=== PATIENT | male | born 1985 | race Caucasian/White ===

== ENCOUNTER 2023-03-10 19:37 | Inpatient (IN) | payer OTHER ==
[2023-03-10 20:41] VITALS: BMI 46.2
[2023-03-11] MEDS ORDERED: IBUPROFEN 400 MG TABLET (FP) PO PRN (01:51)
[2023-03-11] MEDS ORDERED: COLLOIDAL OATMEAL 1 BAR EACH TP PRN (01:51)
[2023-03-11] MEDS ORDERED: BENZONATATE 200 MG CAPSULE PO PRN (01:51)
[2023-03-11] MEDS ORDERED: hydrOXYzine PAMOATE 25 MG CAPSULE (FP) PO PRN (01:51)
[2023-03-11] MEDS ORDERED: BENZOCAINE/MENTHOL (CHLORASEPTIC ) LOZENGE MM PRN (01:51)
[2023-03-11] MEDS ORDERED: POLYETHYLENE GLYCOL (HEALTHYLAX) 3350 17 GM PACKET PO PRN (01:51)
[2023-03-11] MEDS ORDERED: NALOXONE HCL 0.4 MG/ML VIAL IM PRN (01:51)
[2023-03-11] MEDS ORDERED: NALOXONE HCL (KLOXXADO) 8 MG SPRAY NS PRN (01:51)
[2023-03-11] MEDS ORDERED: MAGNESIUM HYDROX 2400MG/30ML ORAL SUSPENSION 30 ML CUP PO PRN (01:51)
[2023-03-11] MEDS ORDERED: guaiFENesin 600 MG TABLET.ER (FP) PO PRN (01:51)
[2023-03-11] MEDS ORDERED: ACETAMINOPHEN 325 MG TABLET (FP) PO PRN (01:51)
[2023-03-11] MEDS ORDERED: TUBERCULIN PPD 5 TU/0.1ML VIAL ID ONE ×2 (10:49→11:52)
[2023-03-11] MEDS: PRENATAL VITAMINS W/ FOLIC ACID TABLET (FP) PO SCH (11:00)
[2023-03-11] MEDS ORDERED: TUBERCULIN PPD 5 TU/0.1ML SYRINGE (IN PATIENT USE ONLY) ID ONE (12:00)
[2023-03-11] MEDS: ESCITALOPRAM OXALATE 10 MG TABLET PO SCH (12:24)
[2023-03-11] MEDS: LOPERAMIDE HCL 2 MG CAPSULE PO PRN (17:25)
[2023-03-11] MEDS: MELATONIN 5 MG TABLETS PO SCH (21:23)
[2023-03-11] MEDS: busPIRone HCL 5 MG TABLET PO SCH (21:24)
[2023-03-11] MEDS: THIAMINE HCL 100 MG TABLET (FP) PO SCH (21:24)
[2023-03-11] MEDS: QUEtiapine FUMARATE 50 MG TABLET PO SCH (21:24)
[2023-03-11] MEDS ORDERED: QUEtiapine FUMARATE 50 MG TABLET PO SCH (22:00)
[2023-03-12] MEDS: PRENATAL VITAMINS W/ FOLIC ACID TABLET (FP) PO SCH (11:24)
[2023-03-12] MEDS: busPIRone HCL 5 MG TABLET PO SCH ×2 (11:25→21:55)
[2023-03-12] MEDS: ESCITALOPRAM OXALATE 10 MG TABLET PO SCH (11:25)
[2023-03-12 11:38] LABS: HEMATOCRIT 42.8 % (35.4-49); HEMOGLOBIN 14.2 GM/dL (11.7-16.9); MCH 27.6 pg (25.7-33.7); MCHC 33.2 g/dl (32.0-35.9); MEAN CELL VOLUME 83.3 fl (80-96); MEAN PLT VOLUME 8.5 fl (7.5-11.1); PLATELET COUNT 283 10^3/uL (134-434); RBC 5.14 M/mm3 (4.00-5.60); RDW 14.5 % (11.9-15.9); WHITE BLOOD COUNT 6.2 K/mm3 (4.0-10.0)
[2023-03-12 11:39] LABS: POTASSIUM 3.6 mmol/L (3.5-5.1)
[2023-03-12 11:45] LABS: ALBUMIN 3.4 g/dl (3.4-5.0)
[2023-03-12 11:48] LABS: BILIRUBIN,TOTAL 0.9 mg/dL (0.2-1); TOT PROT 6.7 g/dl (6.4-8.2)
[2023-03-12 11:49] LABS: CREATININE 1.2 mg/dL (0.55-1.3)
[2023-03-12] MEDS: LOPERAMIDE HCL 2 MG CAPSULE PO PRN (18:15)
[2023-03-12] MEDS: THIAMINE HCL 100 MG TABLET (FP) PO SCH (21:55)
[2023-03-12] MEDS: QUEtiapine FUMARATE 50 MG TABLET PO SCH (21:55)
[2023-03-12] MEDS: MELATONIN 5 MG TABLETS PO SCH (21:55)
[2023-03-13] MEDS: busPIRone HCL 5 MG TABLET PO SCH ×2 (09:44→21:31)
[2023-03-13] MEDS: PRENATAL VITAMINS W/ FOLIC ACID TABLET (FP) PO SCH (09:45)
[2023-03-13] MEDS: ESCITALOPRAM OXALATE 10 MG TABLET PO SCH (09:45)
[2023-03-13] MEDS: LOPERAMIDE HCL 2 MG CAPSULE PO PRN (19:40)
[2023-03-13] MEDS: THIAMINE HCL 100 MG TABLET (FP) PO SCH (21:31)
[2023-03-13] MEDS: QUEtiapine FUMARATE 50 MG TABLET PO SCH (21:31)
[2023-03-13] MEDS: MELATONIN 5 MG TABLETS PO SCH (21:31)
[2023-03-14] MEDS: ESCITALOPRAM OXALATE 10 MG TABLET PO SCH (09:50)
[2023-03-14] MEDS: busPIRone HCL 5 MG TABLET PO SCH ×2 (09:51→21:16)
[2023-03-14] MEDS: PRENATAL VITAMINS W/ FOLIC ACID TABLET (FP) PO SCH (09:51)
[2023-03-14 14:58] LABS: PH,URINE 6.5 (5.0-8.0); URINE APPEARANCE CLEAR; URINE BILIRUBIN NEGATIVE (NEGATIVE); URINE COLOR YELLOW; URINE GLUCOSE (UA) NEGATIVE (NEGATIVE); URINE KETONE TRACE (NEGATIVE); URINE LEUK ESTERASE NEGATIVE (NEGATIVE); URINE NITRITE NEGATIVE (NEGATIVE); URINE PROTEIN NEGATIVE (NEGATIVE)
[2023-03-14] MEDS: QUEtiapine FUMARATE 50 MG TABLET PO SCH (21:16)
[2023-03-14] MEDS: MELATONIN 5 MG TABLETS PO SCH (21:16)
[2023-03-14] MEDS: THIAMINE HCL 100 MG TABLET (FP) PO SCH (21:16)
[2023-03-15] MEDS: busPIRone HCL 5 MG TABLET PO SCH ×2 (10:05→21:16)
[2023-03-15] MEDS: ESCITALOPRAM OXALATE 10 MG TABLET PO SCH (10:05)
[2023-03-15] MEDS: PRENATAL VITAMINS W/ FOLIC ACID TABLET (FP) PO SCH (10:05)
[2023-03-15] MEDS: MELATONIN 5 MG TABLETS PO SCH (21:16)
[2023-03-15] MEDS: THIAMINE HCL 100 MG TABLET (FP) PO SCH (21:16)
[2023-03-15] MEDS: QUEtiapine FUMARATE 50 MG TABLET PO SCH (21:16)
[2023-03-16] MEDS: ESCITALOPRAM OXALATE 10 MG TABLET PO SCH (10:02)
[2023-03-16] MEDS: PRENATAL VITAMINS W/ FOLIC ACID TABLET (FP) PO SCH (10:02)
[2023-03-16] MEDS: busPIRone HCL 5 MG TABLET PO SCH ×2 (10:02→21:16)
[2023-03-16] MEDS: MELATONIN 5 MG TABLETS PO SCH (21:16)
[2023-03-16] MEDS: QUEtiapine FUMARATE 50 MG TABLET PO SCH (21:16)
[2023-03-16] MEDS: THIAMINE HCL 100 MG TABLET (FP) PO SCH (21:16)
[2023-03-17] MEDS: busPIRone HCL 5 MG TABLET PO SCH ×2 (09:32→21:18)
[2023-03-17] MEDS: ESCITALOPRAM OXALATE 10 MG TABLET PO SCH (09:32)
[2023-03-17] MEDS: PRENATAL VITAMINS W/ FOLIC ACID TABLET (FP) PO SCH (09:32)
[2023-03-17] MEDS: MELATONIN 5 MG TABLETS PO SCH (21:18)
[2023-03-17] MEDS: QUEtiapine FUMARATE 50 MG TABLET PO SCH (21:18)
[2023-03-17] MEDS: THIAMINE HCL 100 MG TABLET (FP) PO SCH (21:18)
[2023-03-18] MEDS: ESCITALOPRAM OXALATE 10 MG TABLET PO SCH (09:52)
[2023-03-18] MEDS: PRENATAL VITAMINS W/ FOLIC ACID TABLET (FP) PO SCH (09:52)
[2023-03-18] MEDS: busPIRone HCL 5 MG TABLET PO SCH ×2 (09:52→21:22)
[2023-03-18] MEDS: THIAMINE HCL 100 MG TABLET (FP) PO SCH (21:22)
[2023-03-18] MEDS: QUEtiapine FUMARATE 50 MG TABLET PO SCH (21:22)
[2023-03-18] MEDS: MELATONIN 5 MG TABLETS PO SCH (21:22)
[2023-03-19] MEDS: ESCITALOPRAM OXALATE 10 MG TABLET PO SCH (09:37)
[2023-03-19] MEDS: busPIRone HCL 5 MG TABLET PO SCH ×2 (09:37→21:31)
[2023-03-19] MEDS: PRENATAL VITAMINS W/ FOLIC ACID TABLET (FP) PO SCH (09:37)
[2023-03-19] MEDS ORDERED: AMMONIUM LACTATE 12% LOTION 225 GM BOTTLE TP PRN (10:28)
[2023-03-19] MEDS: MELATONIN 5 MG TABLETS PO SCH (21:30)
[2023-03-19] MEDS: QUEtiapine FUMARATE 50 MG TABLET PO SCH (21:30)
[2023-03-19] MEDS: THIAMINE HCL 100 MG TABLET (FP) PO SCH (21:31)
[2023-03-20] MEDS: PRENATAL VITAMINS W/ FOLIC ACID TABLET (FP) PO SCH (09:51)
[2023-03-20] MEDS: ESCITALOPRAM OXALATE 10 MG TABLET PO SCH (09:51)
[2023-03-20] MEDS: busPIRone HCL 5 MG TABLET PO SCH ×2 (09:51→21:14)
[2023-03-20] MEDS: QUEtiapine FUMARATE 50 MG TABLET PO SCH (21:13)
[2023-03-20] MEDS: THIAMINE HCL 100 MG TABLET (FP) PO SCH (21:14)
[2023-03-20] MEDS: MELATONIN 5 MG TABLETS PO SCH (21:14)
[2023-03-21] MEDS: busPIRone HCL 5 MG TABLET PO SCH ×2 (09:47→21:18)
[2023-03-21] MEDS: ESCITALOPRAM OXALATE 10 MG TABLET PO SCH (09:47)
[2023-03-21] MEDS: PRENATAL VITAMINS W/ FOLIC ACID TABLET (FP) PO SCH (09:48)
[2023-03-21] MEDS: QUEtiapine FUMARATE 50 MG TABLET PO SCH (21:18)
[2023-03-21] MEDS: THIAMINE HCL 100 MG TABLET (FP) PO SCH (21:18)
[2023-03-21] MEDS: MELATONIN 5 MG TABLETS PO SCH (21:18)
[2023-03-22] MEDS: busPIRone HCL 5 MG TABLET PO SCH ×2 (09:58→21:41)
[2023-03-22] MEDS: PRENATAL VITAMINS W/ FOLIC ACID TABLET (FP) PO SCH (09:58)
[2023-03-22] MEDS: ESCITALOPRAM OXALATE 10 MG TABLET PO SCH (09:59)
[2023-03-22] MEDS: THIAMINE HCL 100 MG TABLET (FP) PO SCH (21:41)
[2023-03-22] MEDS: QUEtiapine FUMARATE 50 MG TABLET PO SCH (21:41)
[2023-03-22] MEDS: MELATONIN 5 MG TABLETS PO SCH (21:41)
[2023-03-23] MEDS: busPIRone HCL 5 MG TABLET PO SCH ×2 (10:03→21:22)
[2023-03-23] MEDS: ESCITALOPRAM OXALATE 10 MG TABLET PO SCH (10:03)
[2023-03-23] MEDS: PRENATAL VITAMINS W/ FOLIC ACID TABLET (FP) PO SCH (10:03)
[2023-03-23] MEDS: QUEtiapine FUMARATE 50 MG TABLET PO SCH (21:22)
[2023-03-23] MEDS: MELATONIN 5 MG TABLETS PO SCH (21:22)
[2023-03-23] MEDS: THIAMINE HCL 100 MG TABLET (FP) PO SCH (21:23)
[2023-03-24] MEDS: busPIRone HCL 5 MG TABLET PO SCH ×2 (09:30→21:33)
[2023-03-24] MEDS: ESCITALOPRAM OXALATE 10 MG TABLET PO SCH (09:30)
[2023-03-24] MEDS: PRENATAL VITAMINS W/ FOLIC ACID TABLET (FP) PO SCH (09:30)
[2023-03-24] MEDS: QUEtiapine FUMARATE 50 MG TABLET PO SCH (21:33)
[2023-03-24] MEDS: MELATONIN 5 MG TABLETS PO SCH (21:33)
[2023-03-24] MEDS: THIAMINE HCL 100 MG TABLET (FP) PO SCH (21:33)
[2023-03-25] MEDS: ESCITALOPRAM OXALATE 10 MG TABLET PO SCH (09:57)
[2023-03-25] MEDS: busPIRone HCL 5 MG TABLET PO SCH ×2 (09:57→21:23)
[2023-03-25] MEDS: PRENATAL VITAMINS W/ FOLIC ACID TABLET (FP) PO SCH (09:57)
[2023-03-25] MEDS: MELATONIN 5 MG TABLETS PO SCH (21:23)
[2023-03-25] MEDS: QUEtiapine FUMARATE 50 MG TABLET PO SCH (21:23)
[2023-03-25] MEDS: THIAMINE HCL 100 MG TABLET (FP) PO SCH (21:23)
[2023-03-26] MEDS: busPIRone HCL 5 MG TABLET PO SCH ×2 (09:58→21:32)
[2023-03-26] MEDS: PRENATAL VITAMINS W/ FOLIC ACID TABLET (FP) PO SCH (09:58)
[2023-03-26] MEDS: ESCITALOPRAM OXALATE 10 MG TABLET PO SCH (09:58)
[2023-03-26] MEDS: MELATONIN 5 MG TABLETS PO SCH (21:32)
[2023-03-26] MEDS: QUEtiapine FUMARATE 50 MG TABLET PO SCH (21:32)
[2023-03-26] MEDS: THIAMINE HCL 100 MG TABLET (FP) PO SCH (21:32)
[2023-03-27] MEDS: PRENATAL VITAMINS W/ FOLIC ACID TABLET (FP) PO SCH (09:57)
[2023-03-27] MEDS: busPIRone HCL 5 MG TABLET PO SCH ×2 (09:57→21:07)
[2023-03-27] MEDS: ESCITALOPRAM OXALATE 10 MG TABLET PO SCH (09:58)
[2023-03-27] MEDS: QUEtiapine FUMARATE 50 MG TABLET PO SCH (21:07)
[2023-03-27] MEDS: MELATONIN 5 MG TABLETS PO SCH (21:07)
[2023-03-27] MEDS: THIAMINE HCL 100 MG TABLET (FP) PO SCH (21:07)
[2023-03-28] MEDS: busPIRone HCL 5 MG TABLET PO SCH ×2 (10:15→21:08)
[2023-03-28] MEDS: PRENATAL VITAMINS W/ FOLIC ACID TABLET (FP) PO SCH (10:15)
[2023-03-28] MEDS: ESCITALOPRAM OXALATE 10 MG TABLET PO SCH (10:16)
[2023-03-28] MEDS: MELATONIN 5 MG TABLETS PO SCH (21:07)
[2023-03-28] MEDS: THIAMINE HCL 100 MG TABLET (FP) PO SCH (21:07)
[2023-03-28] MEDS: QUEtiapine FUMARATE 50 MG TABLET PO SCH (21:07)
[2023-03-29] MEDS: PRENATAL VITAMINS W/ FOLIC ACID TABLET (FP) PO SCH (10:20)
[2023-03-29] MEDS: busPIRone HCL 5 MG TABLET PO SCH ×2 (10:21→21:14)
[2023-03-29] MEDS: ESCITALOPRAM OXALATE 10 MG TABLET PO SCH (10:21)
[2023-03-29] MEDS: MELATONIN 5 MG TABLETS PO SCH (21:13)
[2023-03-29] MEDS: THIAMINE HCL 100 MG TABLET (FP) PO SCH (21:13)
[2023-03-29] MEDS: QUEtiapine FUMARATE 50 MG TABLET PO SCH (21:14)
[2023-03-30] MEDS: PRENATAL VITAMINS W/ FOLIC ACID TABLET (FP) PO SCH (09:59)
[2023-03-30] MEDS: busPIRone HCL 5 MG TABLET PO SCH ×2 (09:59→21:10)
[2023-03-30] MEDS: ESCITALOPRAM OXALATE 10 MG TABLET PO SCH (09:59)
[2023-03-30] MEDS: THIAMINE HCL 100 MG TABLET (FP) PO SCH (21:10)
[2023-03-30] MEDS: QUEtiapine FUMARATE 50 MG TABLET PO SCH (21:10)
[2023-03-30] MEDS: MELATONIN 5 MG TABLETS PO SCH (21:11)
[2023-03-30] MEDS: IBUPROFEN 600 MG TABLET (FP) PO PRN (21:11)
[2023-03-31] MEDS: MAG HYDROX/AL HYDROX/SIMETH 30 ML UNIT-DOSE CUP PO PRN (08:52)
[2023-03-31] MEDS: PRENATAL VITAMINS W/ FOLIC ACID TABLET (FP) PO SCH (09:02)
[2023-03-31] MEDS: ESCITALOPRAM OXALATE 10 MG TABLET PO SCH (09:03)
[2023-03-31] MEDS: busPIRone HCL 5 MG TABLET PO SCH ×2 (09:03→21:09)
[2023-03-31] MEDS: QUEtiapine FUMARATE 50 MG TABLET PO SCH (21:09)
[2023-03-31] MEDS: MELATONIN 5 MG TABLETS PO SCH (21:09)
[2023-03-31] MEDS: THIAMINE HCL 100 MG TABLET (FP) PO SCH (21:09)
[2023-04-01] MEDS: ESCITALOPRAM OXALATE 10 MG TABLET PO SCH (09:13)
[2023-04-01] MEDS: busPIRone HCL 5 MG TABLET PO SCH ×2 (09:13→21:28)
[2023-04-01] MEDS: PRENATAL VITAMINS W/ FOLIC ACID TABLET (FP) PO SCH (09:14)
[2023-04-01] MEDS: MELATONIN 5 MG TABLETS PO SCH (21:28)
[2023-04-01] MEDS: THIAMINE HCL 100 MG TABLET (FP) PO SCH (21:28)
[2023-04-01] MEDS: QUEtiapine FUMARATE 50 MG TABLET PO SCH (21:28)
[2023-04-02] MEDS: PRENATAL VITAMINS W/ FOLIC ACID TABLET (FP) PO SCH (09:42)
[2023-04-02] MEDS: ESCITALOPRAM OXALATE 10 MG TABLET PO SCH (09:42)
[2023-04-02] MEDS: busPIRone HCL 5 MG TABLET PO SCH ×2 (09:42→21:04)
[2023-04-02] MEDS: IBUPROFEN 600 MG TABLET (FP) PO PRN (17:34)
[2023-04-02] MEDS: THIAMINE HCL 100 MG TABLET (FP) PO SCH (21:04)
[2023-04-02] MEDS: QUEtiapine FUMARATE 50 MG TABLET PO SCH (21:04)
[2023-04-02] MEDS: MELATONIN 5 MG TABLETS PO SCH (21:04)
[2023-04-03] MEDS: MAG HYDROX/AL HYDROX/SIMETH 30 ML UNIT-DOSE CUP PO PRN ×2 (02:44→07:45)
[2023-04-03] MEDS ORDERED: ONDANSETRON *ODT* 4 MG TABLET SL PRN (08:16)
[2023-04-03 08:57] VITALS: RESP 18; TEMP 98.1
[2023-04-03] MEDS: ESCITALOPRAM OXALATE 10 MG TABLET PO SCH (09:42)
[2023-04-03] MEDS: PRENATAL VITAMINS W/ FOLIC ACID TABLET (FP) PO SCH (09:42)
[2023-04-03] MEDS: busPIRone HCL 5 MG TABLET PO SCH ×2 (09:42→21:09)
[2023-04-03] MEDS: QUEtiapine FUMARATE 50 MG TABLET PO SCH (21:09)
[2023-04-03] MEDS: THIAMINE HCL 100 MG TABLET (FP) PO SCH (21:09)
[2023-04-03] MEDS: MELATONIN 5 MG TABLETS PO SCH (21:10)
[2023-04-04] MEDS: ESCITALOPRAM OXALATE 10 MG TABLET PO SCH (09:46)
[2023-04-04] MEDS: busPIRone HCL 5 MG TABLET PO SCH ×2 (09:46→21:20)
[2023-04-04] MEDS: PRENATAL VITAMINS W/ FOLIC ACID TABLET (FP) PO SCH (09:47)
[2023-04-04] MEDS: MELATONIN 5 MG TABLETS PO SCH (21:19)
[2023-04-04] MEDS: THIAMINE HCL 100 MG TABLET (FP) PO SCH (21:19)
[2023-04-04] MEDS: QUEtiapine FUMARATE 50 MG TABLET PO SCH (21:20)
[2023-04-05] MEDS: ESCITALOPRAM OXALATE 10 MG TABLET PO SCH (09:07)
[2023-04-05] MEDS: PRENATAL VITAMINS W/ FOLIC ACID TABLET (FP) PO SCH (09:07)
[2023-04-05] MEDS: busPIRone HCL 5 MG TABLET PO SCH (09:07)
[2023-04-05 09:12] VITALS: BP 136/79; PULSE 93
== END 2023-04-05 09:12 | disposition home or self-care (01) | DRG 772 ==
LOC: YASAS 19:37 → Y3E 03-11 02:09
PROVIDERS: ADMIT Allergy & Immunology; ATTEND Psychiatry & Neurology Pain Medicine
PROC: HZ42ZZZ Group Counseling for Substance Abuse Treatment, Cognitive-Behavioral (ICD-10-PCS; principal; 2023-03-11)
DX: F14.20 Cocaine dependence, uncomplicated (principal); F12.20 Cannabis dependence, uncomplicated; F19.982 Other psychoactive substance use, unspecified with psychoactive substance-induced sleep disorder; F19.94 Other psychoactive substance use, unspecified with psychoactive substance-induced mood disorder; F41.9 Anxiety disorder, unspecified; F31.9 Bipolar disorder, unspecified; F43.12 Post-traumatic stress disorder, chronic; E78.5 Hyperlipidemia, unspecified; E66.01 Morbid (severe) obesity due to excess calories; Z68.42 Body mass index [BMI] 45.0-49.9, adult; Z87.891 Personal history of nicotine dependence; Z88.0 Allergy status to penicillin; Z62.810 Personal history of physical and sexual abuse in childhood; Z56.0 Unemployment, unspecified; Z59.00 Homelessness unspecified
CPT/HCPCS: 36415; 80053; 80307; 81003; 83036; 85027; 86780; 87635; 87811; 93005; 93010

== ENCOUNTER 2023-04-30 11:52 | Inpatient (IN) | payer OTHER ==
[2023-04-30 12:38] VITALS: BMI 48.1
[2023-04-30] MEDS ORDERED: BENZONATATE 200 MG CAPSULE PO PRN (14:19)
[2023-04-30] MEDS ORDERED: BENZOCAINE/MENTHOL (CHLORASEPTIC ) LOZENGE MM PRN (14:19)
[2023-04-30] MEDS ORDERED: IBUPROFEN 400 MG TABLET (FP) PO PRN (14:19)
[2023-04-30] MEDS ORDERED: POLYETHYLENE GLYCOL (HEALTHYLAX) 3350 17 GM PACKET PO PRN (14:19)
[2023-04-30] MEDS ORDERED: ACETAMINOPHEN 325 MG TABLET (FP) PO PRN (14:19)
[2023-04-30] MEDS ORDERED: MAG HYDROX/AL HYDROX/SIMETH 30 ML UNIT-DOSE CUP PO PRN (14:19)
[2023-04-30] MEDS ORDERED: NALOXONE HCL 0.4 MG/ML VIAL IM PRN (14:19)
[2023-04-30] MEDS ORDERED: IBUPROFEN 600 MG TABLET (FP) PO PRN (14:19)
[2023-04-30] MEDS ORDERED: LOPERAMIDE HCL 2 MG CAPSULE PO PRN (14:19)
[2023-04-30] MEDS ORDERED: guaiFENesin 600 MG TABLET.ER (FP) PO PRN (14:19)
[2023-04-30] MEDS ORDERED: NALOXONE HCL (KLOXXADO) 8 MG SPRAY NS PRN (14:19)
[2023-04-30] MEDS ORDERED: MAGNESIUM HYDROX 2400MG/30ML ORAL SUSPENSION 30 ML CUP PO PRN (14:19)
[2023-04-30] MEDS ORDERED: PRENATAL VITAMINS W/ FOLIC ACID TABLET (FP) PO ONE (15:03)
[2023-04-30] MEDS: PRENATAL VITAMINS W/ FOLIC ACID TABLET (FP) PO SCH (15:06)
[2023-04-30] MEDS: MELATONIN 5 MG TABLETS PO SCH (21:52)
[2023-04-30] MEDS: THIAMINE HCL 100 MG TABLET (FP) PO SCH (21:52)
[2023-04-30] MEDS: hydrOXYzine PAMOATE 25 MG CAPSULE (FP) PO PRN (21:52)
[2023-05-01 11:50] LABS: HEMATOCRIT 39.6 % (35.4-49); HEMOGLOBIN 12.9 GM/dL (11.7-16.9); MCH 27.7 pg (25.7-33.7); MCHC 32.7 g/dl (32.0-35.9); MEAN CELL VOLUME 84.7 fl (80-96); MEAN PLT VOLUME 8.6 fl (7.5-11.1); PLATELET COUNT 274 10^3/uL (134-434); RBC 4.68 M/mm3 (4.00-5.60); RDW 14.9 % (11.9-15.9); WHITE BLOOD COUNT 7.7 K/mm3 (4.0-10.0)
[2023-05-01 12:17] LABS: CHLORIDE 107 mmol/L (98-107); SODIUM 141 mmol/L (136-145)
[2023-05-01 12:19] LABS: CALCIUM 8.4 mg/dL (8.5-10.1); SYPHILIS W/ RPR CONF NON-REACTIVE (NONREACTIVE)
[2023-05-01 12:20] LABS: ALBUMIN 3.2 g/dl (3.4-5.0); ANION GAP 5 mmol/L (4-13); BLOOD UREA NITROGEN 15.1 mg/dL (7-18); CO2 28 mmol/L (21-32); GLUCOSE,RANDOM 97 mg/dL (74-106)
[2023-05-01 12:22] LABS: SGPT/ALT 25 U/L (13-61)
[2023-05-01 12:24] LABS: BILIRUBIN,TOTAL 0.6 mg/dL (0.2-1); CREATININE 0.9 mg/dL (0.55-1.3); SGOT/AST 18 U/L (15-37); TOT PROT 6.4 g/dl (6.4-8.2)
[2023-05-01 12:27] LABS: ALK PHOS 68 U/L (45-117)
[2023-05-01] MEDS: BACITRACIN 0.9 GM PACKET TP SCH (13:11)
[2023-05-01 21:12] LABS: EPI CELLS 1 /uL (0-25.1); HYALINE CASTS 0 /uL (0-3.1); URINE APPEARANCE CLEAR; URINE BACTERIA 3 /uL (0-1359); URINE BILIRUBIN NEGATIVE (NEGATIVE); URINE COLOR YELLOW; URINE GLUCOSE (UA) NEGATIVE (NEGATIVE); URINE KETONE NEGATIVE (NEGATIVE); URINE LEUK ESTERASE NEGATIVE (NEGATIVE); URINE NITRITE NEGATIVE (NEGATIVE); URINE PROTEIN NEGATIVE (NEGATIVE); URINE RBC 11 /uL (0-23.9); URINE WBC 1 /uL (0-25.8)
[2023-05-01] MEDS: busPIRone HCL 5 MG TABLET PO SCH (21:54)
[2023-05-01] MEDS: QUEtiapine FUMARATE 50 MG TABLET PO SCH (21:55)
[2023-05-02 09:22] VITALS: BP 131/68; PULSE 75; RESP 20; TEMP 97.7
[2023-05-02] MEDS: ESCITALOPRAM OXALATE 10 MG TABLET PO SCH (10:46)
== END 2023-05-02 12:04 | disposition home or self-care (01) | DRG 774 ==
LOC: YASAS 11:52 → Y3N 18:43
PROVIDERS: ADMIT Allergy & Immunology; ATTEND Surgery
PROC: HZ2ZZZZ Detoxification Services for Substance Abuse Treatment (ICD-10-PCS; principal; 2023-04-30)
DX: F14.20 Cocaine dependence, uncomplicated (principal); F12.20 Cannabis dependence, uncomplicated; F31.9 Bipolar disorder, unspecified; F19.24 Other psychoactive substance dependence with psychoactive substance-induced mood disorder; F43.10 Post-traumatic stress disorder, unspecified; U07.1 COVID-19; E78.5 Hyperlipidemia, unspecified; E66.01 Morbid (severe) obesity due to excess calories; Z68.42 Body mass index [BMI] 45.0-49.9, adult; Z62.810 Personal history of physical and sexual abuse in childhood; Z56.0 Unemployment, unspecified; Z59.00 Homelessness unspecified; Z88.0 Allergy status to penicillin
CPT/HCPCS: 36415; 80053; 80307; 81003; 85027; 86780; 86803; 87635; 87811

== ENCOUNTER 2024-02-25 10:38 | Inpatient (IN) | payer OTHER ==
[2024-02-25 11:20] VITALS: BMI 48.1
[2024-02-25] MEDS ORDERED: ONDANSETRON *ODT* 4 MG TABLET SL PRN (12:02)
[2024-02-25] MEDS ORDERED: MAGNESIUM HYDROX 2400MG/30ML ORAL SUSPENSION 30 ML CUP PO PRN (12:02)
[2024-02-25] MEDS ORDERED: BENZOCAINE/MENTHOL (CHLORASEPTIC ) LOZENGE MM PRN (12:02)
[2024-02-25] MEDS ORDERED: DICYCLOMINE HCL 10 MG CAPSULE PO PRN (12:02)
[2024-02-25] MEDS ORDERED: BISMUTH SUBSALICYLATE 262 MG/15 ML BTL PO PRN (12:02)
[2024-02-25] MEDS ORDERED: IBUPROFEN 600 MG TABLET (FP) PO PRN (12:02)
[2024-02-25] MEDS ORDERED: MAG HYDROX/AL HYDROX/SIMETH 30 ML UNIT-DOSE CUP PO PRN (12:02)
[2024-02-25] MEDS ORDERED: LOPERAMIDE HCL 2 MG CAPSULE PO PRN (12:02)
[2024-02-25] MEDS ORDERED: guaiFENesin 600 MG TABLET.ER (FP) PO PRN (12:02)
[2024-02-25] MEDS ORDERED: NALOXONE (NARCAN) HCL 4 MG/0.1 ML SPRAY NS PRN (12:02)
[2024-02-25] MEDS ORDERED: POLYETHYLENE GLYCOL (HEALTHYLAX) 3350 17 GM PACKET PO PRN (12:02)
[2024-02-25] MEDS ORDERED: ACETAMINOPHEN 325 MG TABLET (FP) PO PRN (12:02)
[2024-02-25] MEDS ORDERED: IBUPROFEN 400 MG TABLET (FP) PO PRN (12:02)
[2024-02-25] MEDS ORDERED: BENZONATATE 200 MG CAPSULE PO PRN (12:02)
[2024-02-25] MEDS: ASPIRIN 81 MG CHEWABLE TABLETS PO SCH (12:39)
[2024-02-25] MEDS: hydrOXYzine PAMOATE 25 MG CAPSULE (FP) PO PRN (12:39)
[2024-02-25] MEDS: ATORVASTATIN CA 20 MG TABLET (FP) PO SCH (12:39)
[2024-02-25] MEDS: QUEtiapine FUMARATE 100 MG TABLET (FP) PO SCH (22:25)
[2024-02-25] MEDS: THIAMINE 100 MG TABLET PO SCH (22:25)
[2024-02-25] MEDS: MELATONIN 5 MG TABLETS PO SCH (22:25)
[2024-02-25] MEDS: MIRTAZAPINE 30 MG TABLET PO SCH (22:25)
[2024-02-26] MEDS: PRENATAL VITAMINS W/ FOLIC ACID TABLET (FP) PO SCH (09:15)
[2024-02-26] MEDS: METHOCARBAMOL 500 MG TABLET PO PRN (09:15)
[2024-02-26] MEDS ORDERED: ALBUTEROL SO4 HFA INHALER IH PRN (09:16)
[2024-02-26 11:24] LABS: POTASSIUM 3.9 mmol/L (3.5-5.1)
[2024-02-26 11:31] LABS: CALCIUM 9.4 mg/dL (8.5-10.1)
[2024-02-26 11:32] LABS: ALBUMIN 3.6 g/dl (3.4-5.0)
[2024-02-26 11:34] LABS: HEMATOCRIT 41.7 % (35.4-49); HEMOGLOBIN 13.6 GM/dL (11.7-16.9); MCH 27.2 pg (25.7-33.7); MCHC 32.6 g/dl (32.0-35.9); MEAN CELL VOLUME 83.7 fl (80-96); MEAN PLT VOLUME 8.3 fl (7.5-11.1); PLATELET COUNT 264 10^3/uL (134-434); RBC 4.98 M/mm3 (4.00-5.60); RDW 14.9 % (11.9-15.9); WHITE BLOOD COUNT 6.2 K/mm3 (4.0-10.0)
[2024-02-26 11:35] LABS: CREATININE 1.1 mg/dL (0.55-1.3)
[2024-02-26 11:37] LABS: BILIRUBIN,TOTAL 0.5 mg/dL (0.2-1); TOT PROT 7.3 g/dl (6.4-8.2)
[2024-02-26 21:42] VITALS: RESP 18
[2024-02-27] MEDS: NALOXONE (NYS OPIOID OVERDOSE PROGRAM) 4 MG/0.1 ML SPRAY NS SCH (10:24)
[2024-02-27 12:35] VITALS: BP 119/73; PULSE 77; TEMP 97.6
== END 2024-02-27 13:50 | disposition other institution (70) | DRG 774 ==
LOC: YASAS 10:38 → Y6N 12:07
PROVIDERS: ADMIT Allergy & Immunology; ATTEND Surgery
PROC: HZ2ZZZZ Detoxification Services for Substance Abuse Treatment (ICD-10-PCS; principal; 2024-02-25)
DX: F10.230 Alcohol dependence with withdrawal, uncomplicated (principal); F14.20 Cocaine dependence, uncomplicated; F12.20 Cannabis dependence, uncomplicated; F31.9 Bipolar disorder, unspecified; F43.10 Post-traumatic stress disorder, unspecified; E78.5 Hyperlipidemia, unspecified; I25.10 Atherosclerotic heart disease of native coronary artery without angina pectoris; J45.909 Unspecified asthma, uncomplicated; N52.9 Male erectile dysfunction, unspecified; Z87.891 Personal history of nicotine dependence; Z62.810 Personal history of physical and sexual abuse in childhood; Z88.0 Allergy status to penicillin
CPT/HCPCS: 36415; 80053; 80305; 80307; 85027; 86780; 87811; 93005; 93010

== ENCOUNTER 2024-02-27 13:58 | Inpatient (IN) | payer OTHER ==
[2024-02-27] MEDS ORDERED: NALOXONE HCL 0.4 MG/ML VIAL IVPUSH PRN (15:02)
[2024-02-27] MEDS ORDERED: NALOXONE (NARCAN) HCL 4 MG/0.1 ML SPRAY NS PRN (15:02)
[2024-02-27] MEDS ORDERED: IBUPROFEN 400 MG TABLET (FP) PO PRN (15:02)
[2024-02-27] MEDS ORDERED: MAGNESIUM HYDROX 2400MG/30ML ORAL SUSPENSION 30 ML CUP PO PRN (15:02)
[2024-02-27] MEDS ORDERED: BENZONATATE 200 MG CAPSULE PO PRN (15:02)
[2024-02-27] MEDS ORDERED: POLYETHYLENE GLYCOL (HEALTHYLAX) 3350 17 GM PACKET PO PRN (15:02)
[2024-02-27] MEDS ORDERED: MAG HYDROX/AL HYDROX/SIMETH 30 ML UNIT-DOSE CUP PO PRN (15:02)
[2024-02-27] MEDS ORDERED: NICOTINE POLACRILEX 4 MG LOZENGE BC PRN (15:02)
[2024-02-27] MEDS ORDERED: ACETAMINOPHEN 325 MG TABLET (FP) PO PRN (15:02)
[2024-02-27] MEDS ORDERED: LOPERAMIDE HCL 2 MG CAPSULE PO PRN (15:02)
[2024-02-27] MEDS ORDERED: NICOTINE POLACRILEX 4 MG GUM BUC PRN (15:02)
[2024-02-27] MEDS: MIRTAZAPINE 30 MG TABLET PO SCH (21:27)
[2024-02-27] MEDS: QUEtiapine FUMARATE 100 MG TABLET (FP) PO SCH (21:27)
[2024-02-27] MEDS: THIAMINE 100 MG TABLET PO SCH (21:27)
[2024-02-27] MEDS: MELATONIN 5 MG TABLETS PO SCH (21:27)
[2024-02-28] MEDS: IBUPROFEN 600 MG TABLET (FP) PO PRN (10:01)
[2024-02-28] MEDS: PRENATAL VITAMINS W/ FOLIC ACID TABLET (FP) PO SCH (10:01)
[2024-02-28] MEDS: ASPIRIN 81 MG CHEWABLE TABLETS PO SCH (10:01)
[2024-02-28] MEDS: PNEUMOC 20-VAL CONJ-DIP CRM/PF 0.5 ML SYRINGE IM ONE (13:10)
[2024-02-28] MEDS: ATORVASTATIN CA 20 MG TABLET (FP) PO SCH (21:08)
[2024-02-29 00:22] LABS: HIV INTERPRETATION NEGATIVE (NEGATIVE)
[2024-02-29] MEDS: METHOCARBAMOL 500 MG TABLET PO PRN (10:26)
[2024-02-29] MEDS: hydrOXYzine PAMOATE 25 MG CAPSULE (FP) PO PRN (10:26)
[2024-02-29] MEDS: guaiFENesin 600 MG TABLET.ER (FP) PO PRN (21:30)
[2024-03-01] MEDS: ALBUTEROL SO4 HFA INHALER IH PRN (00:11)
[2024-03-01] MEDS: BENZOCAINE/MENTHOL (CHLORASEPTIC ) LOZENGE MM PRN (06:16)
[2024-03-03] MEDS: guaiFENesin 600 MG TABLET.ER (FP) PO PRN (10:31)
[2024-03-06] MEDS ORDERED: BENZONATATE 200 MG CAPSULE PO PRN (12:39)
[2024-03-06] MEDS: guaiFENesin 600 MG TABLET.ER (FP) PO SCH (13:57)
[2024-03-07] MEDS: CHOLECALCIFEROL (VIT D3) 1,000 UNIT (25 MCG) TABLET PO SCH (09:48)
[2024-03-11] MEDS: BACLOFEN 10 MG TABLET (FP) PO SCH (21:15)
[2024-03-18 06:45] VITALS: RESP 17; TEMP 97.3
[2024-03-19] MEDS ORDERED: QUEtiapine FUMARATE 50 MG TABLET ONE (21:20)
[2024-03-21] MEDS ORDERED: CHOLECALCIFEROL (VIT D3) 1,000 UNIT (25 MCG) TABLET PO SCH (13:31)
[2024-03-21] MEDS ORDERED: PRENATAL VITAMINS W/ FOLIC ACID TABLET (FP) PO SCH (13:45)
[2024-03-21] MEDS ORDERED: ASPIRIN 81 MG CHEWABLE TABLETS PO SCH (13:45)
[2024-03-23 06:24] VITALS: BP 119/76; PULSE 83
[2024-03-24] MEDS: NALOXONE (NYS OPIOID OVERDOSE PROGRAM) 4 MG/0.1 ML SPRAY NS SCH (09:15)
== END 2024-03-24 09:22 | disposition home or self-care (01) | DRG 772 ==
LOC: YASAS 13:58 → Y3W 14:05 → Y5N 03-02 14:14 → Y3W 03-02 14:17
PROVIDERS: ADMIT Psychiatry & Neurology Pain Medicine; ATTEND Psychiatry & Neurology Pain Medicine
PROC: HZ42ZZZ Group Counseling for Substance Abuse Treatment, Cognitive-Behavioral (ICD-10-PCS; principal; 2024-02-27)
DX: F10.20 Alcohol dependence, uncomplicated (principal); F14.20 Cocaine dependence, uncomplicated; F12.20 Cannabis dependence, uncomplicated; F19.282 Other psychoactive substance dependence with psychoactive substance-induced sleep disorder; F19.24 Other psychoactive substance dependence with psychoactive substance-induced mood disorder; F32.A Depression, unspecified; F43.10 Post-traumatic stress disorder, unspecified; E78.5 Hyperlipidemia, unspecified; J45.909 Unspecified asthma, uncomplicated; E55.9 Vitamin D deficiency, unspecified; J02.9 Acute pharyngitis, unspecified; Z87.891 Personal history of nicotine dependence
CPT/HCPCS: 0241U-QW; 36415; 82140; 82306; 86803; 87389; J0475